=== PATIENT | female | born 1985 | race African-American/Black ===

== ENCOUNTER 2023-05-31 09:40 | Day surgery (SDC) | payer BC ==
--- NOTE | 2023-05-31 09:42 | RAD REPORT ---
EXAM DESCRIPTION: RAD - Chest Pa And Lat (2 Views) - 05/31/2023 9:37 am CLINICAL HISTORY: pre op for surgery COMPARISON: No comparisons FINDINGS: Lines: None. Lungs: No evidence of edema or pneumonia. Pleural: No significant pleural effusions or pneumothorax. Cardiac: The heart size is within normal limits. Mediastinum: Within normal limits. Bones: No acute fractures. Other: None IMPRESSION: No acute cardiopulmonary disease.
[2023-05-31 09:54] LABS: Absolute Lymphocytes (CBC) 2.2 K/uL (0.7-4.9); Hematocrit 40.6 % (36.0-45.0); Lymphocytes % 26.4 % (15.3-44.8); MCV 84.9 fL (80-100); MPV 7.5 fL (7.6-11.3); Platelets 334 thou/uL (152-406); RBC Red Blood Cell Count 4.78 M/uL (3.86-4.86)
[2023-05-31 10:05] LABS: Albumin 3.5 g/dL (3.4-5.0); Bilirubin Direct 0.1 mg/dL (0-0.2); Bilirubin Indirect, Calculated 0.5 mg/dL (0.2-0.8); Bilirubin Total 0.6 mg/dL (0.2-1.0); Potassium 4.2 mEq/L (3.5-5.1); Protein, Total 6.9 g/dL (6.4-8.2)
[2023-05-31] MEDS: Ringers Lactate 1,000 ML IV ONE (10:10)
[2023-05-31] MEDS ORDERED: dexAMETHasone 10 MG/ML VIAL ONE (10:36)
[2023-05-31] MEDS ORDERED: LIDOCAINE 2% MPF 5 ML VIAL ONE (10:36)
[2023-05-31] MEDS ORDERED: ONDANSETRON 4 MG/2 ML VIAL ONE (10:36)
[2023-05-31] MEDS ORDERED: KETOROLAC 30 MG/ML INJ ONE (10:36)
[2023-05-31] MEDS ORDERED: ROCURONIUM 50 MG/5 ML VIAL IV ONE (10:37)
[2023-05-31] MEDS ORDERED: propofoL 200 MG/20 ML VIAL IV ONE (10:37)
[2023-05-31] MEDS ORDERED: MIDAZOLAM HCL 2 MG/2 ML INJ ONE (10:37)
[2023-05-31] MEDS ORDERED: FENTANYL CITR 100 MCG/2 ML ONE (10:37)
[2023-05-31] MEDS: CEFOXITIN SODIUM 1 GM/VIAL ONE (11:09)
[2023-05-31] MEDS ORDERED: NS 0.9% VIAL 10 ML ONE (11:29)
[2023-05-31] MEDS ORDERED: GLYCOPYRROLATE 0.2 MG/ML SYR ONE (12:00)
[2023-05-31] MEDS ORDERED: NEOSTIGMINE 1 MG/ML -10 ML VIAL ONE (12:00)
--- NOTE | 2023-05-31 12:09 | P.BOP ---
Preoperative diagnosis: symptomatic cholelithiasis, RUQ abd pain Postoperative diagnosis: same Primary procedure: Laparoscopic cholecystectomy Estimated blood loss: <10cc Specimen: gb Findings: as above Anesthesia: General Complications: None Transferred to: Recovery Room Condition: Good
[2023-05-31] MEDS: ONDANSETRON 4 MG/2 ML VIAL ONE (12:40)
[2023-05-31] MEDS: HYDROMORPHONE HCL 1 MG/ML INJ ONE ×2 (12:41→12:51)
[2023-05-31] MEDS ORDERED: LIDOCAINE JELLY 2% 5 ML SYRINGE TOP ONE (12:57)
--- NOTE | 2023-05-31 12:57 | DS ---
Diagnosis: Symptomatic cholelithiasis, right upper quadrant abdominal pain. Procedure: Laparoscopic cholecystectomy. Disposition: Home. Activity: As tolerated. No heavy lifting. Plan: Follow up in my office in 1 week. Call for appointment at [phone]. Keep area dry for 48 dany rs, then may shower. Keep Steri-Strips intact. ROSIBEL/TERRELL Voice ID: [id number] Report ID: [id number]
--- NOTE | 2023-05-31 12:57 | OP ---
Date of Procedure: 05/31/2023 Surgeon: Paolo Wiseman MD Preoperative Diagnosis: Symptomatic cholelithiasis, right upper quadrant abdominal pain. Postoperative Diagnosis: Symptomatic cholelithiasis, right upper quadrant abdominal pain. Procedure: Laparoscopic cholecystectomy. Estimated Blood Loss: Less than 10 cc. Specimen: Gallbladder. Anesthesia: General plus local. Complications: None. Findings: As above. Indication: This is a case of a 38-year-old patient who came to us with right upper quadrant abdomin al pain, diagnosed with symptomatic cholelithiasis. The benefits, alternatives, and risks of laparos copic, possible open cholecystectomy, fully explained, which include, but not limited to, infection, bleeding, damage to adjacent structures, anesthesia complication, choledocholithiasis, bile leak, reese creatitis, VA, and even . She also understands this may not relieve any symptoms. She might ne ed more than one surgical intervention. She understood, signed a consent. Description Of Procedure: Patient was brought to the operating room, placed in supine position. Ane sthesia was induced without complication. Abdominal area was prepped and draped in usual sterile fas hion. Marcaine 0.5% was injected for local anesthetic followed by sharp incision of the skin in the infraumbilical region. Incision was carried down to fascia, which was opened under direct vision. P eritoneum was encountered, opened under direct vision. Vicryl #1 placed inside the fascia. Raul t rocar was carefully introduced. Pneumoperitoneum was obtained. I placed three more trocars, 5 mm ea ch one of them, one in epigastric area, two in the right upper quadrant using the same technique whic h consisted of local anesthetic, sharp incision of the skin, introduction of the trocars under direct vision. This allowed me to put a grasper in the fundus of the gallbladder, another grasper in the i nfundibulum, retracting the gallbladder in the inferolateral fashion exposing the triangle of Calot, obtaining critical view. Cystic duct and cystic artery were clearly isolated, freed circumferentiall y and a connection between those and the gallbladder were clearly identified. I proceeded to ligate those by using at least 3 clips proximal, 1 clip distal, ligation in the middle. Same was done with the cystic artery. No bile leak. No bleeding. The gallbladder was removed from liver using Bovie c auterizer and removed from abdominal cavity using EndoCatch through the umbilical incision. The area was inspected once again. No bile leak. No bleeding. At that moment, I proceeded to remove the tr ocars under direct vision, deflated the pneumoperitoneum. Closed the fascia with #1 Vicryl, irrigate d subcutaneous tissue, closed that with 3-0 chromic and the skin with 3-0 chromic in a subcuticular f ashion and Steri-Strips on top. Sponge counts and instrument counts were correct. Patient tolerated the procedure well. Patient was sent to Recovery in stable condition. ROSIBEL/TERRELL Voice ID: [id number] Report ID: [id number]
[2023-05-31 13:27] VITALS: BP 112/59; TEMP 97.1; O2SAT 97
[2023-05-31] MEDS: CODEINE 30MG/APAP 300MG TAB ONE (13:55)
--- NOTE | 2023-06-01 15:26 | EKG ---
Test Date: 2023-05-31 Test Time: 10:27:57 Rn Clinical Resource: ALVARO MEASUREMENT RESULTS: Intervals: Rate: 77 TN: 124 QRSD: 68 QT: 372 QTc: 420 [place]: P: 63 TN: 124 QRS: 81 T: 37 INTERPRETIVE STATEMENTS: Normal sinus rhythm with sinus arrhythmia Normal ECG No previous ECG available for comparison Electronically Signed On 06-01-23 15:23:55 ADDICTIONS COUNSELOR ASSISTANT by Alvino Crenshaw
== END 2023-05-31 14:15 | disposition home or self-care (01) ==
LOC: OR 09:40
PROVIDERS: ATTEND Surgery
PROC: 0FT44ZZ Resection of Gallbladder, Percutaneous Endoscopic Approach (ICD-10-PCS; principal; 2023-05-31 13:15)
DX: K80.10 Calculus of gallbladder with chronic cholecystitis without obstruction (principal); R10.11 Right upper quadrant pain; E66.9 Obesity, unspecified; F32.A Depression, unspecified; F17.210 Nicotine dependence, cigarettes, uncomplicated
CPT/HCPCS: 93005; 85025; 80048; 36415; 84703; 80076; 88304; 83690; 71046; 47562; A4216; J2704; J2710; J2001; J2250; J3010; J1100; J1170 ×2; J0694; J2405 ×2; J7120